=== PATIENT | female | born 1970 | race Two or more races ===

== ENCOUNTER 2018-02-12 07:48 | Outpatient (CLI) | payer OTHER | END 2018-02-12 13:21 | disposition home or self-care (01) | LOC: NUCLEAR 07:48 | DX: R07.89 Other chest pain (principal); I11.9 Hypertensive heart disease without heart failure; I25.10 Atherosclerotic heart disease of native coronary artery without angina pectoris | CPT/HCPCS: 93306; 78452; A9500; 93017 ==